=== PATIENT | male | born 1970 | race Caucasian/White ===

== ENCOUNTER 2021-02-04 12:59 | Outpatient (RCR) | payer BC ==
[2016-06-26 22:24] VITALS: BP 133/76
[~2021-02-04 12:59] MED LIST: FELDENE20 M1 PO; GLUCOPHAGE500 MG/TAB PO; GOOD NEIGHBOR200 M1 PO
== END 2021-05-05 | disposition home or self-care (01) ==
LOC: CARDREHAB
DX: Z48.812 Encounter for surgical aftercare following surgery on the circulatory system (principal); Z95.5 Presence of coronary angioplasty implant and graft; I21.9 Acute myocardial infarction, unspecified

== ENCOUNTER → 2021-04-22 | Outpatient (CLI) | payer BC | LOC: LAB 09:04 | DX: Z20.822 Contact with and (suspected) exposure to COVID-19 (principal) ==

== ENCOUNTER 2022-01-17 08:04 | Outpatient (RCR) | payer BC | END 2022-01-28 | disposition home or self-care (01) | LOC: CARDREHAB | DX: I50.9 Heart failure, unspecified (principal) ==

== ENCOUNTER 2022-01-31 08:04 | Outpatient (RCR) | payer BC | END 2022-02-28 | disposition home or self-care (01) | LOC: CARDREHAB | DX: I50.9 Heart failure, unspecified (principal) ==

== ENCOUNTER 2022-03-01 08:00 | Outpatient (RCR) | payer BC | END 2022-03-30 | disposition home or self-care (01) | LOC: CARDREHAB | DX: I50.9 Heart failure, unspecified (principal) ==

== ENCOUNTER 2022-04-05 08:00 | Outpatient (RCR) | payer BC | END 2022-04-30 | disposition home or self-care (01) | LOC: CARDREHAB | DX: I11.0 Hypertensive heart disease with heart failure (principal); I50.9 Heart failure, unspecified ==

== ENCOUNTER → 2024-04-17 | Outpatient (CLI) | payer BC ==
[~2024-04-17] MED LIST changes: +Iohexol 300 - 100 ML VIAL IV ONE
== END ==
LOC: RAD 07:49
DX: R60.0 Localized edema (principal); J90 Pleural effusion, not elsewhere classified
CPT/HCPCS: Q9967